=== PATIENT | female | born 1970 | race Caucasian/White ===

== ENCOUNTER 2016-07-30 07:48 | Day surgery (SDC) | payer BC, OTHER ==
[2016-07-29 11:25] VITALS: BMI 23.1
[2016-07-30] MEDS ORDERED: PROPOFOL 20 ML ONE (08:21)
[2016-07-30 08:48] VITALS: TEMP 98.2
[2016-07-30 09:16] VITALS: BP 111/54; PULSE 62
== END 2016-07-30 09:17 | disposition home or self-care (01) ==
LOC: FASU-ENDO 07:48
PROVIDERS: ATTEND Internal Medicine Gastroenterology
PROC: 0DB98ZX Excision of Duodenum, Via Natural or Artificial Opening Endoscopic, Diagnostic (ICD-10-PCS; principal; 2016-07-30 08:20)
PROC: 0DB68ZX Excision of Stomach, Via Natural or Artificial Opening Endoscopic, Diagnostic (ICD-10-PCS; 2016-07-30 08:20)
DX: R10.13 Epigastric pain (principal); K29.50 Unspecified chronic gastritis without bleeding
CPT/HCPCS: 84703; 88305-TC; 88342-TC

== ENCOUNTER 2018-06-08 08:09 | Day surgery (SDC) | payer BC ==
[2018-06-07 12:35] VITALS: BMI 23.1
[2018-06-08] MEDS ORDERED: PROPOFOL 20 ML ONE ×3 (08:42)
[2018-06-08 10:12] VITALS: BP 105/61; PULSE 62; TEMP 97.7
--- NOTE | 2018-06-09 15:03 | PATH ---
Surgical Pathology Report Patient Name: SUELLEN IBRAHIM [facility]. Rec. #: [id number] /Age/Gender: 1970 (Age: 47) / F Account: [id number] Location: [facility] Taken: 06/08/2018 Received: 06/08/2018 Reported: 06/09/2018 Physicians: Murray Nair M.D. Specimen(s) Received A: BIOPSY DUODENUM B: BIOPSY ANTRUM Clinical History Anemia Postoperative diagnosis: Normal Final Diagnosis A. DUODENUM, BIOPSY: DUODENAL MUCOSA WITH NO PATHOLOGIC FINDINGS. B. ANTRUM, BIOPSY: GASTRIC ANTRAL-TYPE MUCOSA WITH NO SIGNIFICANT PATHOLOGIC FINDINGS. IMMUNOSTAIN IS NEGATIVE FOR H. PYLORI ORGANISMS. Electronically Signed Monica Carrillo M.D. Gross Description A. Received in formalin, labeled "biopsy duodenum" are 3 hardin, irregular portions of soft tissue ranging from 0.1-0.5 cm. in greatest dimension. The specimens are submitted in toto in one cassette. B. Received in formalin, labeled "biopsy antrum" are 2 hardin, irregular portions of soft tissue measuring 0.5 and 0.7 cm. in greatest dimension. The specimens are submitted in toto in one cassette. /06/08/2018 saudi06/08/2018
== END 2018-06-08 10:13 | disposition home or self-care (01) ==
LOC: FASU-ENDO 08:09
PROVIDERS: ATTEND Internal Medicine Gastroenterology
PROC: 0DB68ZX Excision of Stomach, Via Natural or Artificial Opening Endoscopic, Diagnostic (ICD-10-PCS; 2018-06-08)
PROC: 0DJD8ZZ Inspection of Lower Intestinal Tract, Via Natural or Artificial Opening Endoscopic (ICD-10-PCS; 2018-06-08)
PROC: 0DB98ZX Excision of Duodenum, Via Natural or Artificial Opening Endoscopic, Diagnostic (ICD-10-PCS; principal; 2018-06-08 08:54)
DX: D50.9 Iron deficiency anemia, unspecified (principal)
CPT/HCPCS: 84703; 88305-TC; 88342-TC